=== PATIENT | female | born 2000 | race Hispanic/Latino ===

== ENCOUNTER 2023-04-10 13:27 | Outpatient (CLI) | payer OTHER | END 2023-04-10 13:28 | disposition home or self-care (01) | LOC: BICULT 13:27 | PROVIDERS: ATTEND Family Medicine | DX: Z34.03 Encounter for supervision of normal first pregnancy, third trimester (principal); Z3A.34 34 weeks gestation of pregnancy | CPT/HCPCS: 76805 ==